=== PATIENT | female | born 1945 | race Caucasian/White ===

== ENCOUNTER 2017-02-23 18:55 | Emergency (ER) | payer MEDICARE ==
[~2017-02-23] VITALS: Ht 152.4 cm; Wt 68.9 kg
[2017-02-23 19:30] LABS: ACT PARTIAL THROMBO TIME 19.5 SECONDS (20.8-31.5)
== END 2017-02-23 21:26 | disposition short-term general hospital (02) ==
LOC: ED 18:55
PROVIDERS: Emergency Medicine
DX: I21.3 ST elevation (STEMI) myocardial infarction of unspecified site (principal)

== ENCOUNTER → 2017-08-19 | Outpatient (CLI) | payer MEDICARE | END | disposition home or self-care (01) | LOC: CARD 01:31 | DX: I08.3 Combined rheumatic disorders of mitral, aortic and tricuspid valves (principal); I25.10 Atherosclerotic heart disease of native coronary artery without angina pectoris ==

== ENCOUNTER → 2017-10-21 | Outpatient (CLI) | payer MEDICARE | END | disposition home or self-care (01) | LOC: MAMMO 00:24 | DX: Z12.31 Encounter for screening mammogram for malignant neoplasm of breast (principal) ==

== ENCOUNTER 2018-06-30 12:37 | Inpatient (IN) | payer MEDICARE ==
[~2018-06-30] VITALS: Ht 152.4 cm; Wt 63.0 kg
--- NOTE | ~2018-06-30 | EKG ---
[place], [place] ELECTROCARDIOGRAM REPORT NAME: COY TELLEZ UNIT #: [id number] ROOM: 515 DOCTOR: SAMSON DRAFT REPORT BIRTHDATE: [birth year] [facility] Test Date: 2018-06-30 Test Time: 15:35:41 Pat Name: COY TELLEZ Department: Room: [facility] Gender: F Pediatric Dietician: : 1945 Requested By: CESARIO AHUJA Order Number: [id number] Reading MD: Kam Donovan MD Measurements Intervals [place] Rate: 55 P: 75 MD: 194 QRS: 61 QRSD: 96 T: 125 QT: 435 QTc: 416 Interpretive Statements Sinus rhythm Atrial premature complex Abnrm T, probable ischemia, anterolateral lds No change from earlier ECG this date Electronically Signed On 06-30-2018 17:33:19 PST by Kam Donovan MD CM:EKGRPT:ELECTROCARDIOGRAM REPORT [id number] CESARIO AHUJA EPIPHANY DRAFT REPORT CESARIO AHUJA
--- NOTE | ~2018-06-30 | EKG ---
[place], [place] ELECTROCARDIOGRAM REPORT NAME: COY TELLEZ UNIT #: [id number] ROOM: 515 DOCTOR: SAMSON DRAFT REPORT BIRTHDATE: [address] 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
--- NOTE | ~2018-06-30 | EKG ---
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
[2018-06-30 12:37] VITALS: BP 165/81
[2018-06-30 13:32] LABS: ACT PARTIAL THROMBO TIME 22.8 SECONDS (20.8-31.5)
[2018-06-30 13:35] VITALS: BP 164/80
[2018-06-30 13:38] LABS: ALBUMIN 3.9 gm/dl (3.1-4.5); ALKALINE PHOSPHATASE 91 U/L (45-117); BUN 15 mg/dl (7-24); CHLORIDE 100 mmol/L (98-107); CREATININE 0.96 mg/dL (0.55-1.02); POTASSIUM 3.9 mmol/L (3.5-5.1); SGOT/AST 24 IU/L (3-35); SGPT/ALT 25 U/L (12-78); SODIUM 134 mmol/L (136-145); TOTAL PROTEIN 7.6 gm/dL (6.4-8.2)
[2018-06-30 13:39] LABS: TROPONIN I < 0.015 ng/ml (<0.045)
[2018-06-30 13:47] LABS: BASO % 0.8 % (0.0-1.0); EOS # 0.1 10*3/uL (0.0-0.4); EOS % 2.3 % (1.0-4.0); HEMATOCRIT 43.9 % (37.0-47.0); HEMOGLOBIN 15.3 g/dl (12.0-16.0); LYMPH % 18.9 % (27.0-41.0); MEAN CELL VOLUME 92.4 fl (81.0-99.0); MEAN CORPUSCULAR HGB 32.2 pg (27.0-31.0); MEAN CORPUSCULAR HGB CONC 34.9 g/dl (33.0-37.0); MONO # 0.4 10*3/uL (0.1-1.0); MONO % 7.6 % (3.0-9.0); NEUT # 3.7 10*3/uL (2.3-7.9); NEUT % 70.2 % (47.0-73.0); PLATELET COUNT AUTOMATED 233 10*3/uL (130-400); RED BLOOD COUNT 4.75 10*6/uL (4.10-5.10); RED CELL DISTRI WIDTH 13.1 % (0-14.5); WHITE BLOOD COUNT 5.3 10*3/uL (4.8-10.8)
[2018-06-30 16:00] VITALS: BP 149/61
[2018-06-30] MEDS ORDERED: TENORMIN25 M1 PO (16:47)
[2018-06-30] MEDS ORDERED: VITAMIN D31000 UNI1 PO (16:47)
[2018-06-30] MEDS ORDERED: HYDROCHLOROTH12.5 M3 PO (16:48)
[2018-06-30] MEDS ORDERED: ASPIRIN81 M1 PO (16:48)
[2018-06-30] MEDS ORDERED: LIPITOR40 MG PO (16:48)
[2018-07-01] VITALS: BP 140/64
[2018-07-01 07:29] LABS: BASO # 0.1 10*3/uL (0.0-0.1); BASO % 1.2 % (0.0-1.0); EOS # 0.1 10*3/uL (0.0-0.4); EOS % 2.4 % (1.0-4.0); HEMATOCRIT 45.7 % (37.0-47.0); HEMOGLOBIN 15.4 g/dl (12.0-16.0); LYMPH # 1.6 10*3/uL (1.3-4.4); LYMPH % 32.3 % (27.0-41.0); MEAN CELL VOLUME 92.9 fl (81.0-99.0); MEAN CORPUSCULAR HGB 31.3 pg (27.0-31.0); MEAN CORPUSCULAR HGB CONC 33.7 g/dl (33.0-37.0); MEAN PLATELET VOLUME 9.1 fl (9.6-12.3); MONO # 0.5 10*3/uL (0.1-1.0); MONO % 9.1 % (3.0-9.0); NEUT # 2.8 10*3/uL (2.3-7.9); NEUT % 54.8 % (47.0-73.0); PLATELET COUNT AUTOMATED 281 10*3/uL (130-400); RED BLOOD COUNT 4.92 10*6/uL (4.10-5.10); RED CELL DISTRI WIDTH 13.2 % (0-14.5); WHITE BLOOD COUNT 5.1 10*3/uL (4.8-10.8)
[2018-07-01 08:00] VITALS: BP 146/64
[2018-07-01 08:05] LABS: CHLORIDE 102 mmol/L (98-107); POTASSIUM 4.4 mmol/L (3.5-5.1); SODIUM 140 mmol/L (136-145)
[2018-07-01 08:26] LABS: CHOLESTEROL 152 mg/dL (<200); FREE T4 1.06 ng/dl (0.76-1.46); HDL CHOLESTEROL 72 mg/dl (40-60); LDL CHOLESTEROL 59 mg/dL (9-159); TRIGLYCERIDES 104 mg/dl (<150); VLDL CHOLESTEROL 21 mg/dL (6-40)
[2018-07-01 08:31] LABS: BUN 13 mg/dl (7-24); CREATININE 0.77 mg/dL (0.55-1.02)
[2018-07-01 08:45] LABS: PHOSPHOROUS 3.5 mg/dL (2.5-4.9)
[2018-07-01 08:46] LABS: VITAMIN D, 25-HYDROXY 31.3 ng/mL (30-100)
[2018-07-01 12:00] VITALS: BP 110/52
== END 2018-07-01 17:18 | disposition home or self-care (01) | DRG 149 ==
LOC: ED 12:37 → 5E 14:23 → EDHOLD 14:23 → 5E 15:13
PROVIDERS: Internal Medicine; Nurse Practitioner Family; ADMIT Internal Medicine
DX: R42 Dizziness and giddiness (principal); E87.1 Hypo-osmolality and hyponatremia; I50.32 Chronic diastolic (congestive) heart failure; E78.5 Hyperlipidemia, unspecified; I25.10 Atherosclerotic heart disease of native coronary artery without angina pectoris; R07.89 Other chest pain; I11.0 Hypertensive heart disease with heart failure; E66.3 Overweight; R73.9 Hyperglycemia, unspecified; E55.9 Vitamin D deficiency, unspecified; Z95.1 Presence of aortocoronary bypass graft; Z79.82 Long term (current) use of aspirin; I25.2 Old myocardial infarction; Z68.27 Body mass index [BMI] 27.0-27.9, adult

== ENCOUNTER 2018-09-13 03:20 | Inpatient (IN) | payer MEDICARE ==
[~2018-09-13] VITALS: Ht 152.4 cm; Wt 65.8 kg
--- NOTE | ~2018-09-13 | CON ---
[place], [place] REPORT OF CONSULTATION NAME[facility] [id number] UNIT #: [id number] ROOM: 420 DOCTOR: ROXANNA FELIX MD BIRTHDATE: [birth year] DOS: 09/13/2018 CARDIOLOGY CONSULTATION REASON FOR CONSULTATION: Syncope and CAD. HISTORY OF PRESENT ILLNESS: The patient is 73-year-old patient with history of hypertension, coronary artery bypass surgery, presented to the Emergency Room with dizziness or lightheadedness. Apparently in the bacteriologist food around 2 30 a.m., she got out of bed to use the bathroom and while walking to the restroom, she felt some dizziness and felt extreme dizzy. When she stood up from the toilet, she feels the room is spinning. Then while she was trying to get back to her bed, she lost her balance and fell on to the ground, but she did not lose her consciousness and had not had any head injury. Her helped her to sit up in the chair and she did have some short of breath and diaphoresis at that time and her ventricular blood pressure is around 60/40 and he called ambulance and the patient was brought to the Emergency Room and was admitted to the hospital and Cardiology consulted for further recommendation. She did have some nausea, but without any vomiting. At the time of examination, she is alert and oriented. Denies any chest pain or shortness of breath. No palpitation, no dizziness, no PND or orthopnea, no headache. No tingling, numbness or weakness. No bladder or bowel symptoms. She had bypass in 2017 and echo from 2018 showed normal LV function, but mild tricuspid regurgitation. Denies any fever or chills. No hemoptysis. No chest pain, no palpitation. REVIEW OF SYSTEMS: Review of 10 systems negative except as mentioned above in history of present illness. PAST MEDICAL HISTORY: 1. Coronary artery disease. 2. Dyslipidemia. 3. Hypertension. 4. Overweight. 5. Mild tricuspid regurgitation. PAST SURGICAL HISTORY: 1. Status post bypass residual in 2017. 2. History of appendicectomy, cholecystectomy, hysterectomy and total knee replacement. SOCIAL HISTORY: The patient does not smoke, does not use alcohol or illicit drugs. FAMILY HISTORY: Father at the age of 73 from mesothelioma. Mother is alive and is 95. ALLERGIES: No known drug allergies. HOME MEDICATIONS: Reviewed including aspirin, atenolol, Lipitor, hydrochlorothiazide, and vitamin D3. [place], [place] REPORT OF CONSULTATION NAME: COY TELLEZ [facility] #: [id number] UNIT #: [id number] ROOM: [facility] DOCTOR: ISIDRO LEBLANC,ROXANNA BIRTHDATE: [birth year] PHYSICAL EXAMINATION: VITAL SIGNS: Currently, blood pressure 143/57, pulse 74, respiration was 18, weight 65.7 kilos, BMI 28.3. NEUROLOGIC: Alert, comfortable, in no acute distress. HEAD AND NECK: Pupils are round and equal. No jaundice. Tongue was moist. Pharynx is clear. NECK: Supple, no distended neck veins, no carotid bruit. CHEST: Symmetrical, nontender. LUNGS: Clear to auscultation bilaterally. HEART: Regular rhythm, no S3, no palpable thrills. Grade 1/6 systolic murmur at the right sternal border. ABDOMEN: Benign, nontender. Bowel sounds normal. EXTREMITIES: Showed no edema. Distal pulses palpable. SKIN: Warm and dry. No cyanosis, no clubbing. RECTAL: Deferred. GENITOURINARY: Deferred. NEUROLOGIC: The patient is alert and oriented. No focal neurologic deficit. PSYCHIATRIC: The patient is alert with good mood and affect. REVIEW OF THE DIAGNOSTIC TESTS: EKG showed normal sinus rhythm with anterolateral ST-T changes. Cardiac enzymes negative. CBC, chemistry reviewed. Echo from July 2017 reviewed. IMPRESSION: 1. Syncope due to hypotension, currently stable. 2. Coronary artery disease, status post bypass in 2017. 3. Mild tricuspid regurgitation. 4. Essential hypertension. 5. Dyslipidemia. 6. Overweight. RECOMMENDATIONS: The patient is currently feeling better. Her blood pressure and heart rate are stable. We will discontinue her hydrochlorothiazide and continue to watch her heart rate and blood pressures. The patient continued to advise to avoid any dehydration and also drink plenty of fluids. The patient will monitor her blood pressures and if the systolic pressure less than 100, we will discontinue or decrease her atenolol. The patient can be discharged home from the cardiac standpoint and she will follow with Dr. Lazaro as per her previous schedule. Above treatment plan was discussed with the patient and her who is at bedside and all questions were answered. [place], [place] REPORT OF CONSULTATION NAME: COY TELLEZ UNIT #: [id number] ROOM: 420 DOCTOR: ISIDRO LEBLANC,ROXANNA BIRTHDATE: [birth year] ROXANNA FELIX MD CM:CONSTR:REPORT OF CONSULTATION 19 10/01/18 0736 interface
--- NOTE | ~2018-09-13 | EKG ---
[place], [place] ELECTROCARDIOGRAM REPORT NAME: COY TELLEZ UNIT #: [id number] ROOM: 420 DOCTOR: SAMSON DRAFT REPORT BIRTHDATE: [birth year] [facility] Test Date: 2018-09-13 Test Time: 10:57:18 Pat Name: COY TELLEZ Department: Room: 420 Gender: F Virtual Reality Specialist: Sabine Rivera : 1945 Requested By: QUINTIN BOONE Order Number: [id number] Reading MD: Travis Lott Measurements Intervals [place] Rate: 68 P: 42 VT: 181 QRS: 4 QRSD: 96 T: 118 QT: 431 QTc: 459 Interpretive Statements Sinus rhythm Atrial premature complex Abnrm T, probable ischemia, anterolateral lds Compared to ECG 06/30/2018 19:10:36 Atrial premature complex(es) now present Atrial abnormality no longer present Possible ischemia still present Electronically Signed On 09-13-2018 11:07:37 PDT by Travis Lott CM:EKGRPT:ELECTROCARDIOGRAM REPORT [id number] 1107 QUINTIN RENO DRAFT REPORT QUINTIN BOONE DO
--- NOTE | ~2018-09-13 | EKG ---
[place], [place] ELECTROCARDIOGRAM REPORT NAME: COY TELLEZ UNIT #: [id number] ROOM: 420 DOCTOR: SAMSON DRAFT REPORT BIRTHDATE: [birth year] [facility] Test Date: 2018-09-13 Test Time: 13:49:58 Pat Name: COY TELLEZ Department: Room: 420 1 Gender: F Collections Curator: Sabine Rivera : 1945 Requested By: QUINTIN BOONE Order Number: [id number] Reading MD: Travis Lott Measurements Intervals [place] Rate: 66 P: 33 TN: 180 QRS: 8 QRSD: 95 T: 133 QT: 385 QTc: 404 Interpretive Statements Sinus rhythm Atrial premature complex Abnrm T, probable ischemia, anterolateral lds Compared to ECG 06/30/2018 19:10:36 Atrial premature complex(es) now present Atrial abnormality no longer present Possible ischemia still present Electronically Signed On 09-13-2018 11:07:45 PDT by Travis Lott CM:EKGRPT:ELECTROCARDIOGRAM REPORT [id number] 1107 QUINTIN RENO DRAFT REPORT QUINTIN BOONE DO
--- NOTE | ~2018-09-13 | EKG ---
[place], [place] ELECTROCARDIOGRAM REPORT NAME: COY TELLEZ UNIT #: [id number] ROOM: 420 DOCTOR: SAMSON DRAFT REPORT BIRTHDATE: [birth year] [facility] Test Date: 2018-09-13 Test Time: 03:45:11 Pat Name: COY TELLEZ Department: Room: 420 Gender: F Harp Regulator: : 1945 Requested By: JEET BUCK Order Number: [id number] Reading MD: Travis Lott Measurements Intervals [place] Rate: 62 P: 42 DE: 186 QRS: 5 QRSD: 100 T: 106 QT: 439 QTc: 446 Interpretive Statements Sinus rhythm Probable left atrial enlargement Abnrm T, probable ischemia, anterolateral lds Compared to ECG 06/30/2018 19:10:36 No significant changes Electronically Signed On 09-13-2018 11:07:11 PDT by Travis Lott CM:EKGRPT:ELECTROCARDIOGRAM REPORT [id number] 1107 JEET RENO DRAFT REPORT JEET BUCK DO
[~2018-09-13 03:20] MED LIST: ASPIRIN81 M1 PO; HYDROCHLOROTH12.5 M3 PO; LIPITOR40 MG PO; TENORMIN25 M1 PO; VITAMIN D31000 UNI1 PO
[2018-09-13 03:21] VITALS: BP 138/79
[2018-09-13 04:14] LABS: BASO % 0.7 % (0.0-1.0); EOS # 0.1 10*3/uL (0.0-0.4); EOS % 1.2 % (1.0-4.0); HEMOGLOBIN 15.1 g/dl (12.0-16.0); LYMPH % 17.4 % (27.0-41.0); MEAN CELL VOLUME 92.6 fl (81.0-99.0); MEAN CORPUSCULAR HGB 31.8 pg (27.0-31.0); MEAN CORPUSCULAR HGB CONC 34.3 g/dl (33.0-37.0); MEAN PLATELET VOLUME 9.5 fl (9.6-12.3); MONO # 0.4 10*3/uL (0.1-1.0); NEUT # 4.3 10*3/uL (2.3-7.9); NEUT % 73.4 % (47.0-73.0); PLATELET COUNT AUTOMATED 268 10*3/uL (130-400); RED BLOOD COUNT 4.75 10*6/uL (4.10-5.10); RED CELL DISTRI WIDTH 13.1 % (0-14.5); WHITE BLOOD COUNT 5.8 10*3/uL (4.8-10.8)
[2018-09-13 04:39] LABS: ALBUMIN 3.9 gm/dl (3.1-4.5); ALKALINE PHOSPHATASE 93 U/L (45-117); BUN 20 mg/dl (7-24); CHLORIDE 100 mmol/L (98-107); CREATININE 0.98 mg/dL (0.55-1.02); POTASSIUM 3.9 mmol/L (3.5-5.1); SGOT/AST 15 IU/L (3-35); SGPT/ALT 23 U/L (12-78); SODIUM 137 mmol/L (136-145); TOTAL PROTEIN 7.3 gm/dL (6.4-8.2); TROPONIN I < 0.015 ng/ml (<0.045)
[2018-09-13 04:47] VITALS: BP 136/56
[2018-09-13 06:03] LABS: BILIRUBIN NEGATIVE (NEGATIVE); BLOOD NEGATIVE (NEGATIVE); CLARITY SL CLOUDY (CLEAR); COLOR YELLOW (YELLOW); GLUCOSE NEGATIVE (NEGATIVE); KETONE 1+ (NEGATIVE); LEUKO ESTERASE NEGATIVE (NEGATIVE); NITRITE NEGATIVE (NEGATIVE); PH 5.5 (5.0-9.0); SPECIFIC GRAVITY <= 1.005 (1.005-1.030); UROBILINOGEN 0.2 E.U./dl (0.2-1.0)
[2018-09-13 06:18] LABS: BACTERIA 4+; HYALINE CAST 20-25
[2018-09-13 06:40] VITALS: BP 139/60
[2018-09-13 07:13] VITALS: BP 127/52
[2018-09-13 11:06] VITALS: BP 120/63
[2018-09-13 11:25] VITALS: BP 143/58
[2018-09-13] MEDS ORDERED: MECLIZINE HCL25 M2 PO (14:00)
== END 2018-09-13 14:21 | disposition home or self-care (01) | DRG 315 ==
LOC: ED 03:20 → EDHOLD 07:30 → 4E 11:10
PROVIDERS: Emergency Medicine; ADMIT Internal Medicine
DX: I95.9 Hypotension, unspecified (principal); E87.2 Acidosis; I50.32 Chronic diastolic (congestive) heart failure; I25.810 Atherosclerosis of coronary artery bypass graft(s) without angina pectoris; R73.9 Hyperglycemia, unspecified; I36.1 Nonrheumatic tricuspid (valve) insufficiency; E66.3 Overweight; I11.0 Hypertensive heart disease with heart failure; E78.5 Hyperlipidemia, unspecified; Z96.652 Presence of left artificial knee joint; E55.9 Vitamin D deficiency, unspecified; Z95.1 Presence of aortocoronary bypass graft; Z79.899 Other long term (current) drug therapy; I25.2 Old myocardial infarction; Z90.49 Acquired absence of other specified parts of digestive tract; Z79.82 Long term (current) use of aspirin; Z90.710 Acquired absence of both cervix and uterus; Z68.28 Body mass index [BMI] 28.0-28.9, adult

== ENCOUNTER → 2019-02-25 | Outpatient (CLI) | payer MEDICARE ==
[~2019-02-25] MED LIST changes: +MECLIZINE HCL25 M2 PO
[2019-02-25 11:07] LABS: HEMATOCRIT 46.2 % (37.0-47.0); HEMOGLOBIN 15.3 g/dl (12.0-16.0); MEAN CELL VOLUME 94.1 fl (81.0-99.0); MEAN CORPUSCULAR HGB 31.2 pg (27.0-31.0); MEAN CORPUSCULAR HGB CONC 33.1 g/dl (33.0-37.0); MEAN PLATELET VOLUME 10.2 fl (9.6-12.3); RED BLOOD COUNT 4.91 10*6/uL (4.10-5.10); RED CELL DISTRI WIDTH 13.5 % (0-14.5); WHITE BLOOD COUNT 3.9 10*3/uL (4.8-10.8)
[2019-02-25 11:39] LABS: BUN 12 mg/dl (7-24); CHLORIDE 106 mmol/L (98-107); CHOLESTEROL 128 mg/dL (<200); CREATININE 0.76 mg/dL (0.55-1.02); POTASSIUM 4.9 mmol/L (3.5-5.1); SGOT/AST 21 IU/L (3-35); SGPT/ALT 21 U/L (12-78); SODIUM 141 mmol/L (136-145); TRIGLYCERIDES 99 mg/dl (<150); VLDL CHOLESTEROL 20 mg/dL (6-40)
[2019-02-25 11:49] LABS: ALKALINE PHOSPHATASE 98 U/L (45-117); HDL CHOLESTEROL 74 mg/dl (40-60); LDL CHOLESTEROL 34 mg/dL (9-159); TOTAL PROTEIN 7.7 gm/dL (6.4-8.2)
== END | disposition home or self-care (01) ==
LOC: LAB 09:10
PROVIDERS: Physician Assistant
DX: I25.10 Atherosclerotic heart disease of native coronary artery without angina pectoris (principal); I10 Essential (primary) hypertension; E78.5 Hyperlipidemia, unspecified; E55.9 Vitamin D deficiency, unspecified

== ENCOUNTER 2020-01-29 10:58 | Emergency (ER) | payer MEDICARE ==
[2020-01-29 11:15] LABS: BASO % 0.5 % (0.0-1.0); EOS % 0.4 % (1.0-4.0); HEMATOCRIT 47.1 % (37.0-47.0); LYMPH # 0.7 10*3/uL (1.3-4.4); LYMPH % 8.2 % (27.0-41.0); MEAN CELL VOLUME 92.7 fl (81.0-99.0); MEAN CORPUSCULAR HGB 30.7 pg (27.0-31.0); MEAN CORPUSCULAR HGB CONC 33.1 g/dl (33.0-37.0); MEAN PLATELET VOLUME 9.1 fl (9.6-12.3); MONO # 0.6 10*3/uL (0.1-1.0); MONO % 6.9 % (3.0-9.0); NEUT # 6.9 10*3/uL (2.3-7.9); NEUT % 83.8 % (47.0-73.0); PLATELET COUNT AUTOMATED 226 10*3/uL (130-400); RED BLOOD COUNT 5.08 10*6/uL (4.10-5.10); RED CELL DISTRI WIDTH 13.1 % (0-14.5); WHITE BLOOD COUNT 8.2 10*3/uL (4.8-10.8)
[2020-01-29 11:25] LABS: ACT PARTIAL THROMBO TIME 24.5 SECONDS (20.0-32.1)
[2020-01-29 11:31] LABS: ALBUMIN 3.8 gm/dl (3.1-4.5); ALKALINE PHOSPHATASE 105 U/L (45-117); BUN 11 mg/dl (7-24); CHLORIDE 105 mmol/L (98-107); CREATININE 0.92 mg/dL (0.55-1.02); POTASSIUM 4.6 mmol/L (3.5-5.1); SGOT/AST 20 IU/L (3-35); SGPT/ALT 27 U/L (12-78); SODIUM 136 mmol/L (136-145); TOTAL PROTEIN 7.4 gm/dL (6.4-8.2)
[2020-01-29 11:40] LABS: TROPONIN I < 0.015 ng/ml (<0.045)
== END 2020-01-29 13:31 | disposition home or self-care (01) ==
LOC: ED 10:58
PROVIDERS: Emergency Medicine
DX: H81.11 Benign paroxysmal vertigo, right ear (principal); I25.10 Atherosclerotic heart disease of native coronary artery without angina pectoris; E78.5 Hyperlipidemia, unspecified; I25.2 Old myocardial infarction

== ENCOUNTER 2020-10-07 18:34 | Emergency (ER) | payer MEDICARE ==
[~2020-10-07] VITALS: Ht 152.4 cm; Wt 62.1 kg
[2020-10-07 18:56] LABS: BILIRUBIN Negative (Negative); BLOOD Negative (Negative); CLARITY Clear (Clear); COLOR Yellow (Yellow); GLUCOSE Negative (Negative); KETONE Trace (Negative); LEUKO ESTERASE Negative (Negative); NITRITE Negative (Negative)
[2020-10-07 19:05] LABS: BACTERIA 1+; EPITHELIAL CELLS 21-30; WBC 0-2 wbc/hpf (0-5)
[2020-10-07] MEDS ORDERED: NAPROXEN250 MG PO (20:48)
== END 2020-10-07 21:24 | disposition home or self-care (01) ==
LOC: ED 18:34
PROVIDERS: Internal Medicine
DX: K57.30 Diverticulosis of large intestine without perforation or abscess without bleeding (principal); M54.5 Low back pain; R10.31 Right lower quadrant pain; R10.2 Pelvic and perineal pain; Z79.899 Other long term (current) drug therapy; Z79.82 Long term (current) use of aspirin; Z90.49 Acquired absence of other specified parts of digestive tract; Z95.1 Presence of aortocoronary bypass graft; Z98.890 Other specified postprocedural states; Z96.652 Presence of left artificial knee joint

== ENCOUNTER → 2021-08-17 | Outpatient (CLI) | payer MEDICARE ==
[~2021-08-17] MED LIST changes: +NAPROXEN250 MG PO
[2021-08-17 12:01] LABS: BUN 9 mg/dl (7-24); CHLORIDE 96 mmol/L (98-107); CREATININE 0.77 mg/dL (0.55-1.02); SODIUM 131 mmol/L (136-145)
== END | disposition home or self-care (01) ==
LOC: LAB 11:05
PROVIDERS: ATTEND Internal Medicine Cardiovascular Disease
DX: I25.10 Atherosclerotic heart disease of native coronary artery without angina pectoris (principal); I25.5 Ischemic cardiomyopathy; I42.9 Cardiomyopathy, unspecified

== ENCOUNTER → 2021-10-24 | Outpatient (CLI) | payer MEDICARE | END | disposition home or self-care (01) | LOC: CARD 09:13 | PROVIDERS: ATTEND Internal Medicine Cardiovascular Disease | DX: I08.3 Combined rheumatic disorders of mitral, aortic and tricuspid valves (principal) ==

== ENCOUNTER → 2023-01-09 | Outpatient (CLI) | payer MEDICARE | END | disposition home or self-care (01) | LOC: MAMMO 00:43 | PROVIDERS: ATTEND Family Medicine | DX: Z12.31 Encounter for screening mammogram for malignant neoplasm of breast (principal) ==

== ENCOUNTER 2024-05-14 07:55 | Emergency (ER) | payer MEDICARE ==
[~2024-05-14] VITALS: Wt 61.2 kg
[2024-05-14 08:17] LABS: BASO # 0.1 10*3/uL (0.0-0.1); BASO % 1.6 % (0.0-1.0); EOS # 0.1 10*3/uL (0.0-0.4); EOS % 1.9 % (1.0-4.0); HEMATOCRIT 45.5 % (37.0-47.0); MEAN CELL VOLUME 92.9 fl (81.0-99.0); MEAN CORPUSCULAR HGB 31.6 pg (27.0-31.0); MEAN CORPUSCULAR HGB CONC 34.1 g/dl (33.0-37.0); MONO # 0.4 10*3/uL (0.1-1.0); MONO % 11.8 % (3.0-9.0); NEUT # 2.3 10*3/uL (2.3-7.9); NEUT % 60.7 % (47.0-73.0); PLATELET COUNT AUTOMATED 262 10*3/uL (130-400); RED CELL DISTRI WIDTH 13.1 % (0-14.5); WHITE BLOOD COUNT 3.7 10*3/uL (4.8-10.8)
[2024-05-14 08:39] LABS: ALKALINE PHOSPHATASE 65 U/L (46-116); BUN 7 mg/dl (9-23); CHLORIDE 103 mmol/L (98-107); POTASSIUM 3.8 mmol/L (3.4-5.1); SGPT/ALT 15 U/L (5-49); TOTAL PROTEIN 7.3 gm/dL (6.0-8.0)
[2024-05-14] MEDS ORDERED: ATIVAN1 MG PO (09:52)
== END 2024-05-14 09:54 | disposition home or self-care (01) ==
LOC: ED 07:55
PROVIDERS: Internal Medicine
DX: R07.89 Other chest pain (principal); F41.9 Anxiety disorder, unspecified; I25.10 Atherosclerotic heart disease of native coronary artery without angina pectoris; Z90.49 Acquired absence of other specified parts of digestive tract; Z90.710 Acquired absence of both cervix and uterus; Z98.890 Other specified postprocedural states; Z96.652 Presence of left artificial knee joint

== ENCOUNTER 2024-06-14 07:39 | Emergency (ER) | payer MEDICARE ==
[~2024-06-14] VITALS: Ht 152.4 cm; Wt 64.6 kg
[~2024-06-14 07:39] MED LIST changes: +ATIVAN1 MG PO
[2024-06-14 08:11] LABS: BASO # 0.1 10*3/uL (0.0-0.1); EOS # 0.1 10*3/uL (0.0-0.4); EOS % 0.9 % (1.0-4.0); MEAN CELL VOLUME 92.2 fl (81.0-99.0); MEAN CORPUSCULAR HGB 31.3 pg (27.0-31.0); MEAN CORPUSCULAR HGB CONC 33.9 g/dl (33.0-37.0); MEAN PLATELET VOLUME 8.9 fl (9.6-12.3); MONO # 0.4 10*3/uL (0.1-1.0); MONO % 7.3 % (3.0-9.0); NEUT # 4.3 10*3/uL (2.3-7.9); NEUT % 74.8 % (47.0-73.0); PLATELET COUNT AUTOMATED 227 10*3/uL (130-400); RED BLOOD COUNT 4.99 10*6/uL (4.10-5.10); RED CELL DISTRI WIDTH 13.5 % (0-14.5); WHITE BLOOD COUNT 5.8 10*3/uL (4.8-10.8)
[2024-06-14 08:24] LABS: BUN 6 mg/dl (9-23); CHLORIDE 102 mmol/L (98-107); POTASSIUM 3.6 mmol/L (3.4-5.1)
[2024-06-14] MEDS ORDERED: LORazepam 1 MG TAB PO ONE (08:40)
== END 2024-06-14 10:20 | disposition home or self-care (01) ==
LOC: ED 07:39
PROVIDERS: Nurse Practitioner Family
DX: F41.9 Anxiety disorder, unspecified (principal); H93.19 Tinnitus, unspecified ear; Z95.1 Presence of aortocoronary bypass graft; Z79.82 Long term (current) use of aspirin; Z79.899 Other long term (current) drug therapy; Z90.49 Acquired absence of other specified parts of digestive tract; Z90.711 Acquired absence of uterus with remaining cervical stump; Z96.652 Presence of left artificial knee joint

== ENCOUNTER 2024-11-07 08:21 | Emergency (ER) | payer MEDICARE ==
[~2024-11-07] VITALS: Ht 152.4 cm; Wt 62.6 kg
[2024-11-07 08:25] VITALS: BP 162/67
[2024-11-07 08:45] LABS: BASO # 0.1 10*3/uL (0.0-0.1); BASO % 1.4 % (0.0-1.0); EOS % 1.2 % (1.0-4.0); HEMATOCRIT 46.6 % (37.0-47.0); MEAN CELL VOLUME 95.1 fl (81.0-99.0); MEAN CORPUSCULAR HGB 31.6 pg (27.0-31.0); MEAN CORPUSCULAR HGB CONC 33.3 g/dl (33.0-37.0); MONO # 0.4 10*3/uL (0.1-1.0); MONO % 10.1 % (3.0-9.0); NEUT # 1.9 10*3/uL (2.3-7.9); NEUT % 53.9 % (47.0-73.0); PLATELET COUNT AUTOMATED 227 10*3/uL (130-400); RED CELL DISTRI WIDTH 12.8 % (0-14.5); WHITE BLOOD COUNT 3.5 10*3/uL (4.8-10.8)
[2024-11-07 09:04] LABS: BUN 5 mg/dl (9-23); CHLORIDE 103 mmol/L (98-107)
[2024-11-07] MEDS ORDERED: FUROSEMIDE 40 MG/4 ML VIAL IV ONE (11:50)
== END 2024-11-07 13:01 | disposition home or self-care (01) ==
LOC: ED 08:21 → EDHOLD 11:52 → ED 11:52
PROVIDERS: Internal Medicine
DX: F41.9 Anxiety disorder, unspecified (principal); R07.89 Other chest pain; R42 Dizziness and giddiness; Z79.899 Other long term (current) drug therapy; Z79.82 Long term (current) use of aspirin; Z90.49 Acquired absence of other specified parts of digestive tract; Z90.710 Acquired absence of both cervix and uterus; Z96.652 Presence of left artificial knee joint

== ENCOUNTER → 2024-11-18 | Outpatient (CLI) | payer MEDICARE ==
[~2024-11-18] MED LIST changes: +ENTRESTO 24 MG1 EACH PO; +FUROSEMIDE20 M1 PO; +HYDROXYZINE PAM25 M1 PO; +Regadenoson 0.4 MG/5 ML SYR IV ONE; +TIZANIDINE2 MG PO
== END | disposition home or self-care (01) ==
LOC: CARD 01:49
PROVIDERS: ATTEND Internal Medicine
DX: I07.1 Rheumatic tricuspid insufficiency (principal); I44.7 Left bundle-branch block, unspecified; I99.8 Other disorder of circulatory system; I25.10 Atherosclerotic heart disease of native coronary artery without angina pectoris; I50.22 Chronic systolic (congestive) heart failure; R06.02 Shortness of breath

== ENCOUNTER → 2024-11-25 | Outpatient (CLI) | payer MEDICARE ==
[~2024-11-25] MED LIST changes: -Regadenoson 0.4 MG/5 ML SYR IV ONE
== END | disposition home or self-care (01) ==
LOC: MAMMO 03:41
PROVIDERS: ATTEND Internal Medicine
DX: Z12.31 Encounter for screening mammogram for malignant neoplasm of breast (principal)